=== PATIENT | female | born 1945 | race African-American/Black ===

== ENCOUNTER 2017-03-06 06:25 | Inpatient (IN) | payer BC, MEDICARE ==
[~2017-03-06] VITALS: Ht 167.6 cm; Wt 87.1 kg
[2017-03-06] MEDS ORDERED: SODIUM CHLORIDE 0.9% 1,000 ML IV ONE (06:45)
[2017-03-06] MEDS ORDERED: MECLIZINE 25MG TABLET PO ONE (07:00)
[2017-03-06] MEDS ORDERED: ONDANSETRON HCL 4MG/2ML VIAL IV ONE (07:00)
[2017-03-06 07:11] LABS: BASOPHILS % 0.5 % (0.0-2.0); EOSINOPHILS % 0.5 % (0.0-5.0); HEMATOCRIT. 42.5 % (36.0-48.0); HEMOGLOBIN. 14.1 g/dL (12.0-16.0); LYMPHOCYTES % 32.6 % (20.0-50.0); MEAN CORPUSCULAR HEMOGLOBIN 30.1 pg (28.0-32.0); MEAN CORPUSCULAR VOLUME 91.1 fL (81.0-99.0); MEAN PLATELET VOLUME 10.1 fl (7.4-10.4); MONOCYTES % 7.9 % (2.0-8.0); NEUTROPHILS % 58.5 % (40.0-76.0); PLATELET 176 x1000/uL (130-400); RED BLOOD CELL COUNT 4.67 mill/uL (4.2-5.4); RED CELL DISTRIBUTION WIDTH 14.1 % (11.6-14.6)
[2017-03-06 07:19] LABS: CHLORIDE 109 mEq/L (98-107)
[2017-03-06 07:21] LABS: INR 1.1; PARTIAL THROMBOPLASTIN TIME 25.7 sec (23.4-31.0)
[2017-03-06 07:31] LABS: CARBON DIOXIDE 21 mEq/L (21-32); TROPONIN I < 0.02 ng/mL (0.00-0.04)
[2017-03-06] MEDS ORDERED: ENALAPRIL 2.5MG TABLET PO ONE (09:00)
[2017-03-06 09:30] VITALS: BP 123/75
[2017-03-06] MEDS ORDERED: ONDANSETRON HCL 4MG/2ML VIAL IV PRN (09:45)
[2017-03-06] MEDS ORDERED: ACETAMINOPHEN 325MG TABLET PO PRN (09:45)
[2017-03-06] MEDS ORDERED: DOCUSATE SODIUM 250MG CAPSULE PO PRN (09:45)
[2017-03-06 12:00] VITALS: BP 144/63
[2017-03-06] MEDS: DEXT 5%/0.45% NACL KCL 10MEQ/L 1,000 ML IV SCH (14:26)
[2017-03-06 16:00] VITALS: BP 133/64
[2017-03-06] MEDS ORDERED: MECLIZINE 12.5MG TABLET PO NR (19:00)
[2017-03-06] MEDS ORDERED: MECLIZINE 12.5MG TABLET PO PRN (19:00)
[2017-03-06] MEDS ORDERED: AMLODIPINE 5MG TABLET PO NR (19:15)
[2017-03-06 19:30] LABS: T4 FREE 1.07 ng/dL (0.76-1.46)
[2017-03-06 20:00] VITALS: BP 155/56
[2017-03-06 23:59] LABS: CREATINE KINASE 50 IU/L (26-192); CREATINE KINASE MB FRACTION 0.6 ng/mL (0.5-3.6); TROPONIN I < 0.02 ng/mL (0.00-0.04)
[2017-03-07] VITALS: BP 128/63
[2017-03-07 04:00] VITALS: BP 144/66
[2017-03-07 06:59] LABS: CLARITY URINE CLEAR (CLEAR); COLOR URINE YELLOW (YELLOW); GLUCOSE URINE NEGATIVE (NEGATIVE); KETONES URINE NEGATIVE (NEGATIVE); LEUKOCYTE ESTERASE URINE 1+ (NEGATIVE); NITRITE URINE NEGATIVE (NEGATIVE); OCCULT BLOOD URINE NEGATIVE (NEGATIVE); PROTEIN URINE NEGATIVE (NEGATIVE); UROBILINOGEN URINE 0.2 E.U./dL (0.2-1.0)
[2017-03-07 07:22] LABS: CREATINE KINASE 50 IU/L (26-192); CREATINE KINASE MB FRACTION < 0.5 ng/mL (0.5-3.6); TROPONIN I < 0.02 ng/mL (0.00-0.04)
[2017-03-07 08:01] VITALS: BP 138/66
[2017-03-07] MEDS: AMLODIPINE 5MG TABLET PO SCH (08:32)
[2017-03-07] MEDS: DEXT 5%/0.45% NACL KCL 10MEQ/L 1,000 ML IV SCH (08:33)
[2017-03-07] MEDS ORDERED: MECLIZINE 25MG TABLET PO PRN (11:00)
[2017-03-07 15:50] LABS: CREATINE KINASE 57 IU/L (26-192); TROPONIN I < 0.02 ng/mL (0.00-0.04)
[2017-03-07 16:00] VITALS: BP 138/76
[2017-03-07 20:00] VITALS: BP 135/59
[2017-03-08] VITALS: BP 142/74
[2017-03-08 04:00] VITALS: BP 131/81
[2017-03-08] MEDS: DEXT 5%/0.45% NACL KCL 10MEQ/L 1,000 ML IV SCH ×2 (06:16→22:12)
[2017-03-08 08:40] VITALS: BP 140/76
[2017-03-08] MEDS: AMLODIPINE 5MG TABLET PO SCH (09:29)
[2017-03-08 12:00] VITALS: BP 147/87
[2017-03-08 17:46] VITALS: BP 168/72
[2017-03-08 20:21] VITALS: BP 143/70
[2017-03-09 00:35] VITALS: BP 107/71
[2017-03-09 04:00] VITALS: BP 135/66
[2017-03-09 08:00] VITALS: BP 128/74
[2017-03-09] MEDS: AMLODIPINE 5MG TABLET PO SCH (09:00)
[2017-03-09 12:00] VITALS: BP 146/87
[2017-03-09 16:00] VITALS: BP 166/83
[2017-03-09] MEDS: DEXT 5%/0.45% NACL KCL 10MEQ/L 1,000 ML IV SCH (19:26)
[2017-03-09 20:00] VITALS: BP 135/86
[2017-03-10] VITALS: BP 127/86
[2017-03-10 04:00] VITALS: BP 133/60
[2017-03-10 08:00] VITALS: BP 150/66
[2017-03-10] MEDS: AMLODIPINE 5MG TABLET PO SCH (09:00)
[2017-03-10 11:20] VITALS: BP 148/73
[2017-03-10 12:00] VITALS: BP 148/73
[2017-03-10] MEDS: DEXT 5%/0.45% NACL KCL 10MEQ/L 1,000 ML IV SCH (14:00)
== END 2017-03-10 14:32 | disposition home or self-care (01) | DRG 149 ==
LOC: ER 06:25 → 7WST 08:09 → EDBEDREQ 08:11 → CANRESERV 08:30 → ENRESERV 08:30
PROVIDERS: ADMIT Internal Medicine; ATTEND Internal Medicine
DX: H81.10 Benign paroxysmal vertigo, unspecified ear (principal); I10 Essential (primary) hypertension; M17.0 Bilateral primary osteoarthritis of knee; Z90.710 Acquired absence of both cervix and uterus
CPT/HCPCS: 36415; 70450; 70544; 70553; 71010; 80053; 81001; 82550; 82553; 83735; 83880; 84439; 84443; 84484; 85025; 85610; 85730; 93005; 93306; 93880; 96361; 96374; 97116; 97162; 97165; 97535; 99285; C1893; J2405; J7030; J8597

== ENCOUNTER 2019-10-10 19:36 | Emergency (ER) | payer BC, MEDICARE ==
[~2019-10-10] VITALS: Ht 167.6 cm; Wt 70.0 kg
[2019-10-10] MEDS ORDERED: ACETAMINOPHEN 500MG TABLET PO ONE (22:15)
[2019-10-11 00:27] LABS: BASOPHILS % 0.6 % (0.0-2.0); HEMATOCRIT. 35.1 % (36.0-48.0); HEMOGLOBIN. 11.9 g/dL (12.0-16.0); LYMPHOCYTES % 26.3 % (20.0-50.0); MEAN CORPUSCULAR HEMOGLOBIN 30.6 pg (28.0-32.0); MEAN CORPUSCULAR VOLUME 90.7 fL (81.0-99.0); MEAN PLATELET VOLUME 10.7 fl (7.4-10.4); MONOCYTES % 11.9 % (2.0-8.0); NEUTROPHILS % 61.2 % (40.0-76.0); PLATELET 113 x1000/uL (130-400); RED BLOOD CELL COUNT 3.87 mill/uL (4.2-5.4); RED CELL DISTRIBUTION WIDTH 13.8 % (11.6-14.6)
[2019-10-11 00:28] LABS: CLARITY URINE CLEAR (CLEAR); COLOR URINE YELLOW (YELLOW); KETONES URINE TRACE (NEGATIVE); LEUKOCYTE ESTERASE URINE NEGATIVE (NEGATIVE); NITRITE URINE NEGATIVE (NEGATIVE); OCCULT BLOOD URINE NEGATIVE (NEGATIVE); PROTEIN URINE 1+ (NEGATIVE); SPECIFIC GRAVITY URINE 1.025 (1.005-1.030)
[2019-10-11 00:32] LABS: CHLORIDE 105 mEq/L (98-107); PROTHROMBIN TIME 10.7 sec (9.6-11.0)
[2019-10-11 01:48] VITALS: BP 147/82
== END 2019-10-11 01:58 | disposition home or self-care (01) ==
LOC: ER 19:36 → CANBEDREQ 10-11 03:09
DX: U07.1 COVID-19 (principal); J06.9 Acute upper respiratory infection, unspecified; R50.9 Fever, unspecified; R05 Cough; I10 Essential (primary) hypertension
CPT/HCPCS: 36415; 71045; 80053; 81003; 83605; 83615; 84145; 84484; 85025; 87635; 87804; 93005; 99285